=== PATIENT | male | born 1965 | race African-American/Black ===

== ENCOUNTER 2016-12-18 09:34 | Emergency (ER) | payer OTHER ==
[2016-12-18 09:45] VITALS: BP 137/78; PULSE 60; RESP 18; TEMP 98.4; O2SAT 98
[2016-12-18 09:49] VITALS: BP 137/78; PULSE 60; RESP 20; TEMP 97.8; O2SAT 99
[2016-12-18] MEDS ORDERED: SODIUM CHLOR 0.9% 1000 ML INJ 1,000 ML IV SCH (09:49)
--- NOTE | 2016-12-18 09:54 | PD ---
HPI Chief Complaint: Abdominal Pain Time Seen by Provider: 09:49 Travel History International Travel<30 days: No Contact w/Intl Traveler<30days: No Traveled to known affect area: No History of Present Illness HPI The patient is a 51-year-old after [place] male who presents to the emergency department via EMS from the retirement for right inguinal and lower abdominal pain. The patient has a 3 year 4 month history of right inguinal hernia which has been reducible in the past. The patient states he had oatmeal and an orange teed at 6 AM, then had a bowel movement which was normal. The patient then developed right lower abdominal pain that radiated into the right groin with significant right groin swelling. The patient does have a history of right inguinal hernia with no previous surgeries in the past. The patient states the hernia has always been reducible in the past by himself. He did note one episode of nausea with vomiting secondary to pain. The symptoms are mild to moderate, possibly exacerbated by history of inguinal hernia, and there are no current alleviating factors. He does have a history of schizophrenia for which he takes Risperdal. [facility] Past Medical History Narrative Medical Schizophrenia ?: Not Past Surgical History Surgical History: No Previous Surgery Social History Tobacco Use: No Allergies-Medications (Allergen,Severity, Reaction): Coded Allergies: No Known Allergies (Unverified , 12/18/16) Review of Systems Except as stated in HPI: all other systems reviewed are Neg Cardiovascular: No: Chest Pain or Discomfort Respiratory: No: Shortness of Breath Gastrointestinal: Positive: Nausea, Vomiting, Abdominal Pain Genitourinary: No: Dysuria, Hematuria Psychiatric: Positive: Disorder of Thought (history of schizophrenia) Physical Exam Narrative GENERAL: Awake, alert, pleasant 51-year-old male who appears his stated age and is in mild discomfort. SKIN: Focused skin assessment warm/dry. HEAD: Atraumatic. Normocephalic. EYES: No injection or drainage. ENT: No nasal bleeding or discharge. Mucous membranes pink and moist. NECK: Trachea midline. No JVD. CARDIOVASCULAR: Regular rate and rhythm. No murmur appreciated. RESPIRATORY: No accessory muscle use. Clear to auscultation. Breath sounds equal bilaterally. GASTROINTESTINAL: Abdomen soft, non-tender, nondistended. No rebound tenderness. Genitourinary: Circumcised phallus. Right inguinal hernia noted extending into the scrotum which is partially reducible initially. MUSCULOSKELETAL: No obvious deformities. No clubbing. No cyanosis. No edema. NEUROLOGICAL: Awake and alert. No obvious cranial nerve deficits. Motor grossly within normal limits. Normal speech. PSYCHIATRIC: Appropriate mood and affect; insight and judgment normal. Data Data Last Documented VS Vital Signs Date Time Temp Pulse Resp B/P (MAP) Pulse Ox O2 Delivery O2 Flow Rate FiO2 12/18/16 10:47 18 12/18/16 10:00 74 137/78 (97) 100 Room Air 12/18/16 09:49 97.8 Orders Orders Complete Blood Count With Diff (12/18/16 09:49) Comprehensive Metabolic Panel (12/18/16 09:49) Prothrombin Time / Inr (Pt) (12/18/16 09:49) Act Partial Throm Time (Ptt) (12/18/16 09:49) Iv Access Insert/Monitor (12/18/16 09:49) Ecg Monitoring (12/18/16 09:49) Oximetry (12/18/16 09:49) Morphine Inj (Morphine Inj) (12/18/16 10:00) Ondansetron Inj (Zofran Inj) (12/18/16 10:00) Sodium Chlor 0.9% 1000 Ml Inj (Ns 1000 M (12/18/16 09:49) Sodium Chloride 0.9% Flush (Ns Flush) (12/18/16 10:00) Ice/Cold Pack (12/18/16 09:49) Labs Laboratory Tests Test 12/18/16 10:05 White Blood Count 7.1 TH/MM3 Red Blood Count 5.34 MIL/MM3 Hemoglobin 14.8 GM/DL Hematocrit 44.5 % Mean Corpuscular Volume 83.3 FL Mean Corpuscular Hemoglobin 27.7 PG Mean Corpuscular Hemoglobin Concent 33.2 % Red Cell Distribution Width 13.9 % Platelet Count 187 TH/MM3 Mean Platelet Volume 7.4 FL Neutrophils (%) (Auto) 90.8 % Lymphocytes (%) (Auto) 5.7 % Monocytes (%) (Auto) 3.0 % Eosinophils (%) (Auto) 0.2 % Basophils (%) (Auto) 0.3 % Neutrophils # (Auto) 6.5 TH/MM3 Lymphocytes # (Auto) 0.4 TH/MM3 Monocytes # (Auto) 0.2 TH/MM3 Eosinophils # (Auto) 0.0 TH/MM3 Basophils # (Auto) 0.0 TH/MM3 CBC Comment DIFF FINAL Differential Comment Prothrombin Time 11.6 SEC Prothromb Time International Ratio 1.0 RATIO Activated Partial Thromboplast Time 26.1 SEC Blood Urea Nitrogen 10 MG/DL Creatinine 1.22 MG/DL Random Glucose 109 MG/DL Total Protein 7.6 GM/DL Albumin 3.9 GM/DL Calcium Level 8.9 MG/DL Alkaline Phosphatase 64 U/L Aspartate Amino Transf (AST/SGOT) 17 U/L Alanine Aminotransferase (ALT/SGPT) 17 U/L Total Bilirubin 0.8 MG/DL Sodium Level 141 MEQ/L Potassium Level 3.7 MEQ/L Chloride Level 108 MEQ/L Carbon Dioxide Level 26.4 MEQ/L Anion Gap 7 MEQ/L Estimat Glomerular Filtration Rate 63 ML/MIN [facility] Medical Decision Making Medical Screen Exam Complete: Yes Emergency Medical Condition: Yes Medical Record Reviewed: Yes Differential Diagnosis Differential diagnosis includes anal hernia, incarcerated hernia, strangulated hernia, hydrocele, varicocele, testicular torsion. Narrative Course IV was established, labs are drawn and sent, and the patient was placed on cardiac telemetry monitoring and continuous pulse oximetry monitoring. The patient was placed in Trendelenburg and an ice pack was placed over the right scrotum. The patient was administered morphine, Zofran, and IV fluids. The patient was kept nothing by mouth. The patient was signed out to the physician , Dr. Hess, with reevaluation pending. Diagnosis Primary Impression: Inguinal hernia Qualified Codes: K40.91 - Unilateral inguinal hernia, without obstruction or gangrene, recurrent Condition: Stable Juan De La Torre MD Dec 18, 2016 09:54
[2016-12-18 10:00] VITALS: BP 137/78; PULSE 74; RESP 18; O2SAT 100
[2016-12-18] MEDS ORDERED: ONDANSETRON HCL 4 MG/2 ML VIAL IVP ONE (10:00)
[2016-12-18] MEDS ORDERED: SODIUM CHLORIDE 0.9% FLUSH 10 ML FLUSH IV FLUSH PRN (10:00)
[2016-12-18] MEDS ORDERED: MORPHINE SULFATE 4 MG/ML INJ IV PUSH ONE (10:00)
[2016-12-18 10:30] LABS: AUTOMATED NEUTROPHIL # 6.5 TH/MM3 (1.8-7.7); BASOPHIL % 0.3 % (0.0-2.0); EOSINOPHIL % 0.2 % (0.0-4.0); HEMATOCRIT 44.5 % (39.0-51.0); HEMO FLAGS DIFF FINAL; LYMPH % 5.7 % (9.0-44.0); LYMPHOCYTE # 0.4 TH/MM3 (1.0-4.8); MEAN CELL VOLUME 83.3 FL (80.0-100.0); MEAN CORPUSCULAR HEMOGLOBIN 27.7 PG (27.0-34.0); MEAN CORPUSCULAR HGB CONC 33.2 % (32.0-36.0); NEUT % 90.8 % (16.0-70.0); PLATELET COUNT 187 TH/MM3 (150-450); RED BLOOD COUNT 5.34 MIL/MM3 (4.50-5.90); RED CELL DISTRIBUTION WIDTH 13.9 % (11.6-17.2); WHITE BLOOD COUNT 7.1 TH/MM3 (4.0-11.0)
[2016-12-18 10:35] LABS: APTT (PATIENT) 26.1 SEC (24.3-30.1); PROTHROMBIN TIME - PATIENT 11.6 SEC (9.8-11.6)
[2016-12-18 10:47] VITALS: RESP 18
[2016-12-18 10:48] LABS: ALT (GPT) 17 U/L (12-78); ANION GAP 7 MEQ/L (5-15); AST (GOT) 17 U/L (15-37); BICARBONATE 26.4 MEQ/L (21.0-32.0); BLOOD UREA NITROGEN 10 MG/DL (7-18); CHLORIDE 108 MEQ/L (98-107); GLOMERULAR FILTRATION RATE 63 ML/MIN (>89); POTASSIUM 3.7 MEQ/L (3.5-5.1); SODIUM (NA) 141 MEQ/L (136-145)
[2016-12-18 10:51] LABS: ALKALINE PHOSPHATASE 64 U/L (45-117); TOTAL BILIRUBIN ADULT 0.8 MG/DL (0.2-1.0)
--- NOTE | 2016-12-18 10:51 | PD ---
Data Data Last Documented VS Vital Signs Date Time Temp Pulse Resp B/P (MAP) Pulse Ox O2 Delivery O2 Flow Rate FiO2 12/18/16 10:47 18 12/18/16 10:00 74 137/78 (97) 100 Room Air 12/18/16 09:49 97.8 Orders Orders Complete Blood Count With Diff (12/18/16 09:49) Comprehensive Metabolic Panel (12/18/16 09:49) Prothrombin Time / Inr (Pt) (12/18/16 09:49) Act Partial Throm Time (Ptt) (12/18/16 09:49) Iv Access Insert/Monitor (12/18/16 09:49) Ecg Monitoring (12/18/16 09:49) Oximetry (12/18/16 09:49) Morphine Inj (Morphine Inj) (12/18/16 10:00) Ondansetron Inj (Zofran Inj) (12/18/16 10:00) Sodium Chlor 0.9% 1000 Ml Inj (Ns 1000 M (12/18/16 09:49) Sodium Chloride 0.9% Flush (Ns Flush) (12/18/16 10:00) Ice/Cold Pack (12/18/16 09:49) Labs Laboratory Tests Test 12/18/16 10:05 White Blood Count 7.1 TH/MM3 Red Blood Count 5.34 MIL/MM3 Hemoglobin 14.8 GM/DL Hematocrit 44.5 % Mean Corpuscular Volume 83.3 FL Mean Corpuscular Hemoglobin 27.7 PG Mean Corpuscular Hemoglobin Concent 33.2 % Red Cell Distribution Width 13.9 % Platelet Count 187 TH/MM3 Mean Platelet Volume 7.4 FL Neutrophils (%) (Auto) 90.8 % Lymphocytes (%) (Auto) 5.7 % Monocytes (%) (Auto) 3.0 % Eosinophils (%) (Auto) 0.2 % Basophils (%) (Auto) 0.3 % Neutrophils # (Auto) 6.5 TH/MM3 Lymphocytes # (Auto) 0.4 TH/MM3 Monocytes # (Auto) 0.2 TH/MM3 Eosinophils # (Auto) 0.0 TH/MM3 Basophils # (Auto) 0.0 TH/MM3 CBC Comment DIFF FINAL Differential Comment Prothrombin Time 11.6 SEC Prothromb Time International Ratio 1.0 RATIO Activated Partial Thromboplast Time 26.1 SEC Blood Urea Nitrogen 10 MG/DL Creatinine 1.22 MG/DL Random Glucose 109 MG/DL Albumin 3.9 GM/DL Calcium Level 8.9 MG/DL Aspartate Amino Transf (AST/SGOT) 17 U/L Alanine Aminotransferase (ALT/SGPT) 17 U/L Sodium Level 141 MEQ/L Potassium Level 3.7 MEQ/L Chloride Level 108 MEQ/L Carbon Dioxide Level 26.4 MEQ/L Anion Gap 7 MEQ/L Estimat Glomerular Filtration Rate 63 ML/MIN [facility] Supervised Visit with TASIA: No Narrative Course 51-year-old man with recurrent trouble with his inguinal hernia. It was reduced at the bedside by Dr. De La Torre and myself. Hernia was fully reduced. We gave the patient athletic supporter to assist in comfort. He has follow-up tentatively scheduled through the [facility] system with the surgeon although he is not sure when this is. He'll need urgent follow-up for repair. Diagnosis Primary Impression: Inguinal hernia Additional Instruction: Wear athletic supporter as discussed. Follow-up with physician for surgical referral for repair. Return to the emergency department for any new or worsening symptoms. Med/Other Pt SpecificInfo: No Change to Meds Disposition: 01 DISCHARGE HOME Condition: Stable Evangelista Hess MD Dec 18, 2016 10:51
== END 2016-12-18 11:37 | disposition home or self-care (01) ==
LOC: NEPC 09:34 → NEPB 11:37
DX: K40.91 Unilateral inguinal hernia, without obstruction or gangrene, recurrent (principal); R10.31 Right lower quadrant pain
CPT/HCPCS: 80053; 85025; 85610; 85730; 96361; 96374; 96375; 99284; J2270; J2405; J7030